=== PATIENT | male | born 1975 | race Caucasian/White ===

== ENCOUNTER → 2020-06-30 12:47 | Outpatient (BNVA) | payer MEDICAID, SELFPAY | PROVIDERS: PCP Internal Medicine; Visit Provider Internal Medicine Cardiovascular Disease | DX: Z95.2 Presence of prosthetic heart valve (principal); Z98.890 Other specified postprocedural states; I35.1 Nonrheumatic aortic (valve) insufficiency; Z86.79 Personal history of other diseases of the circulatory system | CPT/HCPCS: 93005; 99212 ==

== ENCOUNTER 2020-09-19 01:32 | Emergency (ER) | payer MEDICAID, SELFPAY ==
[2020-09-19 01:46] VITALS: BP 123/75; PULSE 61; RESP 20; TEMP 37.2; O2SAT 98; BMI 23.7
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
--- NOTE | 2020-09-19 02:40 | PC.NURSE ---
Wounds cleaned by Dr Swanson. Dermabond applied. Clean, dry dressings applied to both wounds on right brower. Wound care taught to patient.
== END 2020-09-19 02:45 | disposition home or self-care (01) ==
LOC: HO.ED 02:35
PROVIDERS: Emergency Provider Emergency Medicine Emergency Medical Services; PCP Internal Medicine
DX: S81.811A Laceration without foreign body, right lower leg, initial encounter (principal); W18.30XA Fall on same level, unspecified, initial encounter; Y93.89 Activity, other specified; Y92.9 Unspecified place or not applicable; Y99.9 Unspecified external cause status
CPT/HCPCS: 12002; 99283; 99284

== ENCOUNTER → 2020-09-30 09:37 | Outpatient (REF) | payer MEDICAID, SELFPAY ==
--- NOTE | 2020-09-30 09:40 | CA_ITS ---
Transthoracic Echocardiogram Patient (Last, First, Middle): Portillo Cabral, Gender: Male Date of : 1975 Age: 45 Procedure Date: 09/30/2020 Procedure Type: Transthoracic Echocardiogram Location: OP Height: 177.8 cm Weight: 77.11 kg BSA: 1.95 m2 Heart Rate: bpm BP: 104 / 74 mmHg Environmental Engineering Manager: Referring MD: Paolo Whitehead MD Symptoms: I51.7 - Cardiomegaly Study Quality: Fair Conclusions: - The left ventricular systolic function is mildly decreased. The calculated ejection fraction is 42% by biplane method. - There is mild to moderately decreased right ventricular systolic function. - A bioprosthetic mitral valve is present. The prosthetic mitral valve appears to be functioning normally. - The patient is status post tricuspid annular ring insertion. There is trace tricuspid valve regurgitation. Findings Left Ventricle Normal left ventricular cavity size. There is normal left ventricular wall thickness. The left ventricular systolic function is mildly decreased. The visually estimated ejection fraction is between 40-45%. The calculated ejection fraction is 42% by biplane method. Diastolic function is indeterminate on the basis of available data. Right Ventricle Normal right ventricular cavity size. There is mild to moderately decreased right ventricular systolic function. Atria The left atrium is normal in size. The right atrium is normal in size. Aortic Valve There is a normal trileaflet aortic valve. There is no aortic valve stenosis. There is mild aortic valve regurgitation. Mitral Valve A bioprosthetic mitral valve is present. The prosthetic mitral valve appears to be functioning normally. There is no mitral valve regurgitation. Mean gradient across the mitral valve 5 mm Hg at 72/Min. Within acceptable limits. Pulmonic Valve The pulmonic valve was not well visualized. There is trace pulmonic valve regurgitation. Tricuspid Valve The patient is status post tricuspid annular ring insertion. There is trace tricuspid valve regurgitation. Tricuspid regurgitation envelope is inadequate for calculation of right ventricular systolic pressure. Great Vessels The asc aorta is normal in size. Venous The inferior vena cava is normal in size and collapses greater than 50% with inspiration. Pericardium/Pleural There is no evidence of pericardial effusion. Prior Study Comparison Changes noted compared to prior study dated: 08/07/2020. LVEF appears diminished. Measurements 2D Linear Measurements RVIDd: 3.61 RVIDd Index: 1.85 IVSd: 0.98 0.6-0.9/0.6-1.0 cm LVIDd: 5.14 3.9-5.3/4.2-5.9 cm LVIDd Index: 2.64 2.4-3.2/2.2-3.1 cm/m2 LVIDs: 3.80 2.0-3.6 cm LVPWd: 0.96 0.7-1.1 cm Ao Root: 3.00 2.1-3.5 cm LA Diam: 3.90 2.7-3.8/3.0-4.0 cm LAIDs Index: 2.00 1.5-2.3 cm/m2 LV Mass: 228.17 67-162/88-224 g LV Mass Index: 117.01 43-95/49-115 g/m2 LVOT Diam: 2.20 3.0+(-)1.3 cm 2D Systolic Function EF 4C: 42.80 >55% EF 2C: 41.10 >55% EF BiP: 41.60 >55% Mitral Valve MV VTI: 0.52 MV Pk Bennie: 1.49 MV Mn Bennie: 1.09 MV Pk Grad: 9.00 MV Mn Grad: 5.00 MV Pk E: 1.45 MV PK A: 1.35 MV Decel Time: 525.00 E/A: 1.10 E'Lateral: 6.85 E'Medial: 5.22 E/E' Med: 27.80 E/E' Lat: 21.20 PHT: 139.00 MVA PHT: 1.58 MVA Continuity: 1.24 Decel Payne: 2.77 Aortic Valve AoV Pk Bennie: 1.11 AoV Mn Bennie: 0.85 AoV VTI: 0.24 AoV Pk Grad: 5.00 Aov Mn Grad: 3.00 BRAULIO Cont.VTI: 2.77 LVOT LVOT Pk Bennie: 0.93 LVOT Mn Bennie: 0.68 LVOT VTI: 0.17 LVOT Pk Grad: 3.00 LVOT Mn Grad: 2.00 LVOT Diam: 2.20 LVOT Area: 3.80 Diastolic Function MV Pk E: 1.45 MV Pk A: 1.35 E/A: 1.10 E'Medial: 5.22 E/E' Med: 27.80 E' Laterial: 6.85 E/E' Lat: 21.20 Tricuspid Valve RA Press: 3.00 Great Vessels Aorta Ao Root-2D: 3.00 2.0-3.7 cm Ao Asc: 2.70 2.1-3.4 cm Ao Arch: 3.10 Updated in Other Vendor System with Status of Final Fady Villagomez MD electronically signed on 09/30/2020 1:33:02 PM with status of Final
== END ==
LOC: HO.CARD 09:37
PROVIDERS: PCP Internal Medicine; Visit Provider Internal Medicine Cardiovascular Disease
DX: I35.1 Nonrheumatic aortic (valve) insufficiency (principal); I51.7 Cardiomegaly; Z95.2 Presence of prosthetic heart valve
CPT/HCPCS: 93306

== ENCOUNTER → 2020-11-27 14:17 | Outpatient (BNVA) | payer MEDICAID, SELFPAY | PROVIDERS: PCP Internal Medicine; Visit Provider Internal Medicine Cardiovascular Disease | DX: I42.9 Cardiomyopathy, unspecified (principal); Z95.2 Presence of prosthetic heart valve | CPT/HCPCS: 99212 ==

== ENCOUNTER → 2021-06-22 10:16 | Outpatient (REF) | payer MEDICAID, SELFPAY ==
--- NOTE | 2021-06-22 10:19 | CA_ITS ---
Transthoracic Echocardiogram Limited Patient (Last, First, Middle): Portillo Cabral, Gender: Male Date of : 1975 Age: 45 Procedure Date: 06/22/2021 Procedure Type: Transthoracic Echocardiogram Limited Location: OP Height: 177.8 cm Weight: 74.84 kg BSA: 1.92 m2 Heart Rate: bpm BP: 120 / 80 mmHg Sales And Marketing Coordinator: VH/OT Referring MD: Paolo Whitehead MD Symptoms: I42.9 - Cardiomyopathy, unspecified Study Quality: Fair ECG Rhythm: Sinus Conclusions: - The left ventricular systolic function is mildly decreased. The calculated ejection fraction is 43% by biplane method. - Mildly increased right ventricular cavity size. There is mildly decreased right ventricular systolic function. - A bioprosthetic mitral valve is present. The prosthetic mitral valve appears to be functioning normally. - Normally functioning tricuspid annuloplasty ring. Findings Left Ventricle Normal left ventricular cavity size. There is normal left ventricular wall thickness. The left ventricular systolic function is mildly decreased. The calculated ejection fraction is 43% by biplane method. There is mild global hypokinesis. Diastolic function is indeterminate on the basis of available data. Right Ventricle Mildly increased right ventricular cavity size. There is mildly decreased right ventricular systolic function. Mitral Valve A bioprosthetic mitral valve is present. The prosthetic mitral valve appears to be functioning normally. There is no mitral valve regurgitation. Mean gradient across the mitral valve 6 mm Hg at 67/Min. Marginal increase compared to prior study. Tricuspid Valve There is no tricuspid valve regurgitation. Annuloplasty ring noted. Mean gradient across the tricuspid valve 2mmHg at 67/min. No significant regurgitation. Venous The inferior vena cava is normal in size and collapses greater than 50% with inspiration. Prior Study Comparison No significant change compared to prior study dated: 09/30/2020. Measurements 2D Linear Measurements IVSd: 0.90 0.6-0.9/0.6-1.0 cm LVIDd: 5.63 3.9-5.3/4.2-5.9 cm LVIDd Index: 2.93 2.4-3.2/2.2-3.1 cm/m2 LVIDs: 4.41 2.0-3.6 cm LVPWd: 0.90 0.7-1.1 cm LV Mass: 241.16 67-162/88-224 g LV Mass Index: 125.60 43-95/49-115 g/m2 2D Systolic Function EF 4C: 42.60 >55% EF 2C: 40.60 >55% EF BiP: 43.20 >55% Mitral Valve MV VTI: 0.57 MV Pk Bennie: 1.69 MV Mn Bennie: 1.02 MV Pk Grad: 11.00 MV Mn Grad: 5.00 Right Ventricle TAPSE (mm): 16.00 TVS' Bennie: 7.00 Tricuspid Valve TV Pk Bennie: 0.82 TV Mn Bennie: 0.55 TV Pk Grad: 3.00 TV Mn Grad: 1.00 TR Pk Bennie: 1.01 TR Pk Grad: 4.00 Updated in Other Vendor System with Status of Final Fady Villagomez MD electronically signed on 06/22/2021 11:43:25 AM with status of Final
== END ==
LOC: HO.CARD 10:16
PROVIDERS: PCP Internal Medicine; Visit Provider Internal Medicine Cardiovascular Disease
DX: I42.9 Cardiomyopathy, unspecified (principal)
CPT/HCPCS: 93308

== ENCOUNTER → 2021-07-07 12:53 | Outpatient (BNVA) | payer MEDICAID, SELFPAY | PROVIDERS: PCP Internal Medicine; Referring Provider Internal Medicine; Visit Provider Internal Medicine Cardiovascular Disease | DX: I42.9 Cardiomyopathy, unspecified (principal); Z95.2 Presence of prosthetic heart valve | CPT/HCPCS: 93005; 99212 ==

== ENCOUNTER 2021-09-10 15:09 | Outpatient (REF) | payer MEDICAID, SELFPAY ==
[2021-09-10 15:19] LABS: MANUAL DIFF FLAG NO
[2021-09-10 15:36] LABS: Basophils Percent Auto 0.6 % (0-2); Eosinophils Absolute Auto 0.2 X10*3/uL (0.0-0.4); Eosinophils Percent Auto 2.5 % (0-4); Hematocrit 43.7 % (42.0-52.0); Hemoglobin 14.4 g/dl (14.0-18.0); Imm Gran Abs Auto 0.02 X10*3/uL (0.00-0.03); Imm Gran Pct Auto 0.3 % (0.0-0.4); Lymphocytes Absolute Auto 1.5 X10*3/uL (1.2-4.9); Lymphocytes Percent Auto 23.4 % (20-40); Mean Corpuscular Volume 94.2 fL (80.0-98.0); Mean Platelet Volume 10.8 fL (9.4-12.4); Monocytes Absolute Auto 0.5 X10*3/uL (0.1-1.2); Monocytes Percent Auto 7.2 % (2-11); Neutrophils Absolute Auto 4.3 x10*3/uL (2.0-8.3); Platelet Count 104 X10*3/uL (160-400); Red Blood Count 4.64 X10*6/uL (4.60-5.80); Red Cell Distribution Width 11.9 % (11.0-16.0); White Blood Count 6.5 X10*3/uL (4.8-10.8)
[2021-09-10 16:01] LABS: Alanine Aminotransferase 17 U/L (0-40); Albumin Level 4.4 g/dL (3.5-5.0); Alkaline Phosphatase 43 U/L (39-117); Anion Gap 13 (12-20); Aspartate Amino Transferase 22 U/L (5-37); Bilirubin Total 0.4 mg/dL (0.0-1.0); Blood Urea Nitrogen 36 mg/dL (9-16); Calcium 9.2 mg/dL (8.4-10.2); Carbon Dioxide 25 mmol/L (22-29); Chloride 103 mmol/L (96-108); Cholesterol 147 mg/dL; Estimated Glomerular Filt Rate 49; Glucose Random 84 mg/dL (60-115); HDL Cholesterol 46 mg/dL; LDL Cholesterol Calculated 83 mg/dl; Potassium 4.1 mmol/L (3.3-5.1); Sodium 137 mmol/L (135-145); Total Protein 6.9 g/dL (6.5-8.0); Triglycerides 91 mg/dL
[2021-09-11 07:51] LABS: HBS Num1 > 1000.00 mIU/mL (0-7.99); HBc Num1 0.08 S/CO (0.00-0.79); HBsAGNum1 0.22 S/CO (0.00-0.99); Hepatitis A Antibody IgM 0.28 Index (0-0.79); Hepatitis B Core Antibody Nonreactive (Nonreactive); Hepatitis B Surface Antigen Negative (Negative); ~HepC Num1 0.09 S/CO (0.00-0.79); ~Hepatitis A Antibody IgM Nonreactive (Nonreactive); ~Hepatitis B Surface Antibody REACTIVE (Nonreactive); ~Hepatitis C Antibody Nonreactive (Nonreactive)
== END 2021-09-10 15:10 | disposition home or self-care (01) ==
LOC: HO.LAB 15:09
PROVIDERS: PCP Internal Medicine; Visit Provider Internal Medicine
DX: Z00.00 Encounter for general adult medical examination without abnormal findings (principal); Z13.31 Encounter for screening for depression; R74.01 Elevation of levels of liver transaminase levels; Z95.2 Presence of prosthetic heart valve
CPT/HCPCS: 36415; 80053; 80061; 85025; 86704; 86706; 86709; 86803; 87340

== ENCOUNTER 2022-03-18 14:06 | Outpatient (REF) | payer MEDICAID, SELFPAY ==
[2022-03-18 14:15] LABS: MANUAL DIFF FLAG NO
[2022-03-18 14:34] LABS: Basophils Absolute Auto 0.1 X10*3/uL (0.0-0.2); Basophils Percent Auto 0.9 % (0-2); Eosinophils Absolute Auto 0.2 X10*3/uL (0.0-0.4); Eosinophils Percent Auto 1.9 % (0-4); Hematocrit 42.4 % (42.0-52.0); Imm Gran Abs Auto 0.02 X10*3/uL (0.00-0.03); Imm Gran Pct Auto 0.2 % (0.0-0.4); Lymphocytes Absolute Auto 1.1 X10*3/uL (1.2-4.9); Lymphocytes Percent Auto 12.1 % (20-40); Mean Corpuscular Hemoglobin 30.8 pg (27.0-33.0); Mean Corpuscular Volume 93.4 fL (80.0-98.0); Mean Platelet Volume 10.8 fL (9.4-12.4); Monocytes Absolute Auto 0.6 X10*3/uL (0.1-1.2); Monocytes Percent Auto 6.7 % (2-11); Neutrophils Absolute Auto 6.9 x10*3/uL (2.0-8.3); Neutrophils Percent Auto 78.2 % (45-73); Platelet Count 135 X10*3/uL (160-400); Red Blood Count 4.54 X10*6/uL (4.60-5.80); Red Cell Distribution Width 12.1 % (11.0-16.0); White Blood Count 8.8 X10*3/uL (4.8-10.8)
[2022-03-18 15:30] LABS: Alanine Aminotransferase 16 U/L (0-40); Albumin Level 4.6 g/dL (3.5-5.0); Alkaline Phosphatase 47 U/L (39-117); Anion Gap 14 (12-20); Aspartate Amino Transferase 21 U/L (5-37); Bilirubin Total 0.5 mg/dL (0.0-1.0); Blood Urea Nitrogen 27 mg/dL (9-16); Carbon Dioxide 29 mmol/L (22-29); Chloride 102 mmol/L (96-108); Estimated Glomerular Filt Rate > 60; Glucose Random 91 mg/dL (60-115); Potassium 4.6 mmol/L (3.3-5.1); Sodium 140 mmol/L (135-145); Total Protein 7.2 g/dL (6.5-8.0)
[2022-03-18 15:31] LABS: Creatinine Urine 187.15 mg/dL; Protein/Creatinine Ratio, Ur 0.04 (<0.2); Total Protein Urine Random 8 mg/dL (<12)
== END 2022-03-18 14:07 | disposition home or self-care (01) ==
LOC: HO.LAB 14:06
PROVIDERS: PCP Internal Medicine; Visit Provider Internal Medicine
DX: D69.59 Other secondary thrombocytopenia (principal); I42.9 Cardiomyopathy, unspecified; N18.9 Chronic kidney disease, unspecified; Z95.2 Presence of prosthetic heart valve
CPT/HCPCS: 36415; 80053; 84156; 85025

== ENCOUNTER → 2022-06-25 10:03 | Outpatient (REF) | payer MEDICAID, SELFPAY ==
--- NOTE | 2022-06-25 10:08 | CA_ITS ---
Transthoracic Echocardiogram Patient (Last, First, Middle): Portillo Cabral, Gender: Male Date of : 1975 Age: 46 Procedure Date: 06/25/2022 Procedure Type: Transthoracic Echocardiogram Location: OP Height: 177.8 cm Weight: 74.84 kg BSA: 1.92 m2 Heart Rate: bpm BP: 110 / 70 mmHg Folding Machine Tender: TO Referring MD: Paolo Whitehead MD Symptoms: I42.9 - Cardiomyopathy, unspecified Study Quality: Fair ECG Rhythm: Sinus Conclusions: - The left ventricular systolic function is mildly decreased. The calculated ejection fraction is 47% by biplane method. - A bioprosthetic mitral valve is present. The prosthetic mitral valve appears to be functioning normally. - The patient is status post tricuspid annular ring insertion. There is no tricuspid valve regurgitation. - There is mild aortic valve regurgitation. Findings Left Ventricle There is normal left ventricular wall thickness. The left ventricular systolic function is mildly decreased. The calculated ejection fraction is 47% by biplane method. There is mild global hypokinesis. Diastolic function is indeterminate on the basis of available data. Top normal size. LV peak GLS -15%. Right Ventricle Mildly increased right ventricular cavity size. There is mild to moderately decreased right ventricular systolic function. Atria Both atria are normal in size. Aortic Valve There is a normal trileaflet aortic valve. There is no aortic valve stenosis. There is mild aortic valve regurgitation. Mitral Valve A bioprosthetic mitral valve is present. The prosthetic mitral valve appears to be functioning normally. There is no mitral valve regurgitation. Mean gradient across mitral valve 5mmHg at 53/min. Similar to prior study. Pulmonic Valve The pulmonic valve is likely normal. There is trace pulmonic valve regurgitation. Tricuspid Valve The patient is status post tricuspid annular ring insertion. There is no tricuspid valve regurgitation. Mean gradient 2mmHg at 51/min. Great Vessels The asc aorta is normal in size. Venous The inferior vena cava is normal in size and collapses greater than 50% with inspiration. Pericardium/Pleural There is no evidence of pericardial effusion. Prior Study Comparison No significant change compared to prior study dated: 06/22/2021. Measurements 2D Linear Measurements IVSd: 0.85 0.6-0.9/0.6-1.0 cm LVIDd: 5.68 3.9-5.3/4.2-5.9 cm LVIDd Index: 2.96 2.4-3.2/2.2-3.1 cm/m2 LVIDs: 4.21 2.0-3.6 cm LVPWd: 0.80 0.7-1.1 cm LA Diam: 4.30 2.7-3.8/3.0-4.0 cm LAIDs Index: 2.24 1.5-2.3 cm/m2 LV Mass: 219.01 67-162/88-224 g LV Mass Index: 114.07 43-95/49-115 g/m2 LVOT Diam: 2.30 3.0+(-)1.3 cm 2D Systolic Function EF 4C: 48.20 >55% EF 2C: 46.00 >55% EF BiP: 47.10 >55% Mitral Valve MV VTI: 0.61 MV Pk Bennie: 1.77 MV Mn Bennie: 1.03 MV Pk Grad: 13.00 MV Mn Grad: 5.00 MV Pk E: 1.44 MV PK A: 1.03 MV Decel Time: 379.00 E/A: 1.40 E'Lateral: 6.31 E'Medial: 5.98 E/E' Med: 24.10 E/E' Lat: 22.80 PHT: 111.00 MVA PHT: 1.98 MVA Continuity: 1.15 Decel Guadalupe: 3.80 Aortic Valve AoV Pk Bennie: 1.28 AoV Mn Bennie: 0.88 AoV VTI: 0.28 AoV Pk Grad: 7.00 Aov Mn Grad: 3.00 BRAULIO Cont.VTI: 2.51 LVOT LVOT Pk Bennie: 0.83 LVOT Mn Bennie: 0.53 LVOT VTI: 0.17 LVOT Pk Grad: 3.00 LVOT Mn Grad: 1.00 LVOT Diam: 2.30 LVOT Area: 4.15 Diastolic Function MV Pk E: 1.44 MV Pk A: 1.03 E/A: 1.40 E'Medial: 5.98 E/E' Med: 24.10 E' Laterial: 6.31 E/E' Lat: 22.80 Right Ventricle TAPSE (mm): 13.30 TVS' Bennie: 7.07 Tricuspid Valve TV Pk Bennie: 1.35 TV Mn Bennie: 0.65 TV Pk Grad: 7.00 TV Mn Grad: 2.00 RA Press: 3.00 Great Vessels Aorta Sinus of Valsalva: 3.53 2.0-3.5 cm Ao Asc: 3.00 2.1-3.4 cm Updated in Other Vendor System with Status of Final Fady Villagomez MD electronically signed on 06/27/2022 11:15:51 AM with status of Final
== END ==
LOC: HO.CARD 10:03
PROVIDERS: PCP Internal Medicine; Visit Provider Internal Medicine Cardiovascular Disease
DX: I35.1 Nonrheumatic aortic (valve) insufficiency (principal); I42.9 Cardiomyopathy, unspecified; Z95.2 Presence of prosthetic heart valve
CPT/HCPCS: 93306; 93356

== ENCOUNTER → 2022-07-06 12:40 | Outpatient (BNVA) | payer MEDICAID, SELFPAY | PROVIDERS: PCP Internal Medicine; Referring Provider Internal Medicine; Visit Provider Internal Medicine Cardiovascular Disease | DX: I42.9 Cardiomyopathy, unspecified (principal); Z95.2 Presence of prosthetic heart valve | CPT/HCPCS: 93005; 99212 ==

== ENCOUNTER 2023-02-01 17:29 | Emergency (ER) | payer MEDICAID, SELFPAY ==
[2023-02-01 17:54] VITALS: BP 117/69; PULSE 62; RESP 18; TEMP 36.8; O2SAT 96; BMI 23.7
--- NOTE | 2023-02-01 17:54 | ED.GENADULT ---
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 Related Data Home Medications Medication Instructions Recorded Confirmed aspirin 81 mg tablet,delayed 81 mg PO DAILY 06/30/20 07/06/22 release (Adult Low Dose Aspirin) Previous Rx's Medication Instructions Recorded amoxicillin 500 mg tablet 2,000 mg (4 x 500 mg) PO ONCE PRN 06/30/20 SBE prophylaxis #8 tabs lisinopril 5 mg tablet 5 mg PO DAILY #90 tabs 10/25/22 amoxicillin 500 mg capsule 500 mg PO TID #30 caps 02/01/23 Allergies Allergy/AdvReac Type Severity Reaction Status Date / Time doxycycline Allergy Rash Verified 02/01/23 17:54 Review of Systems Review of Systems: Yes all other systems are reviewed and are negative PMFSH Past Medical History Attestation statement: The following information was validated with the patient. Source: old records reviewed Medical History Cardiomyopathy Infective endocarditis Aortic regurgitation Enlarged RV (right ventricle) History of congestive heart failure Surgical History Mitral valve replaced Hx of tricuspid valve repair History of open heart surgery Family History Family History Father No problems noted. Mother No problems noted. Physical Exam ED Appearance: Alert.?Oriented to person, place and time. No acute distress.?Normal affect. Neck: Normal inspection.? Neck supple.?? CVS: Heart sounds normal. Normal heart rate and rhythm.? Pulses normal.?? Respiratory: No respiratory distress.? Lung sounds clear to auscultation bilaterally?? Skin: Skin warm and dry.? Normal skin color.? Right lateral chest wall just inferior to the axilla with 0.5 cm scabbed wound surrounding erythema, no erythema migrans? Extremities: No lower extremity edema.? Neuro: Moves all extremities spontaneously. Sensation intact bilaterally. No focal neuro deficits. Ambulates with normal steady gait. Medical Decision Making Medical Decision Making [facility] Narrative: Patient is a 47-year-old male presented to emergency department for evaluation of a suspected tick bite to the right lateral chest wall as per HPI, appearance is not consistent with erythema migrans, he has a history of allergy to doxycycline, reviewed UpToDate, no data to support the efficacy of short course of another antibiotic, patient insists he has previously received prophylaxis but does not recall the name. Discussed this case with ED Attending, Dr. Sanchez, recommended course of treatment with amoxicillin 500 mg t.i.d. for 10 days. Reviewed worrisome signs and symptoms that would warrant re-evaluation in the emergency department. Advised outpatient follow-up with primary care provider. Differential Diagnosis Differential Diagnoses: The differential diagnosis associated with the presentation includes (Insect bite, cellulitis, abrasion) External Record Review External record reviewed: Prior outpatient labs Prescription Management I considered prescription management with: Antibiotic Discharge Plan Discharge Clinical Impression: Tick bite Instructions: Tick Bite (ED) Additional Instructions: Complete the entire course of antibiotics as prescribed for Lyme disease prophylaxis. Contact your primary care provider to arrange for follow-up. Prescriptions: New amoxicillin 500 mg capsule 500 mg PO TID Qty: 30 0RF No Action lisinopril 5 mg tablet 5 mg PO DAILY Qty: 90 3RF aspirin [Adult Low Dose Aspirin] 81 mg tablet,delayed release (DR/EC) 81 mg PO DAILY amoxicillin 500 mg tablet 2,000 mg PO ONCE PRN (Reason: SBE prophylaxis) Qty: 8 2RF Referrals: Brenda Espitia MD [Primary Care Provider] -
== END 2023-02-01 18:16 | disposition home or self-care (01) ==
PROVIDERS: Emergency Provider Emergency Medicine; PCP Internal Medicine
DX: S40.861A Insect bite (nonvenomous) of right upper arm, initial encounter (principal); W57.XXXA Bitten or stung by nonvenomous insect and other nonvenomous arthropods, initial encounter; Y93.9 Activity, unspecified; Y92.9 Unspecified place or not applicable; Y99.9 Unspecified external cause status
CPT/HCPCS: 99282; 99283

== ENCOUNTER 2023-06-15 14:26 | Emergency (ER) | payer MEDICAID, SELFPAY ==
[2023-06-15 15:17] VITALS: BP 135/89; PULSE 86; RESP 20; TEMP 37.1; O2SAT 98; BMI 24.4
--- NOTE | 2023-06-15 15:37 | ED.WOUNDLAC ---
HPI - Wound/Laceration General Chief Complaint: Wound/Laceration Stated Complaint: Multiple tick bites R leg Time Seen by Provider: 06/15/23 15:29 Source: patient and RN notes reviewed Mode of arrival: ambulatory Limitations: no limitations History of Present Illness HPI narrative: This is a 47-year-old male, with no known medical problems, presenting to the emergency department with complaints of rash. Patient states that he has for ?bite? olson on his right upper leg. He states that he knows this several days ago. He states that he remove multiple ticks off of his dog. He is concerned that these may have been tics. He denies seeing any ticks on him. He denies any fevers, chills, chest pain, shortness of breath, abdominal pain, nausea, vomiting or diarrhea. No other rashes noted. He states that the areas are painful, denies any itchiness. No other complaints or concerns at this time Onset (ago): day(s) Associated symptoms: none Related Data Home Medications Medication Instructions Recorded Confirmed aspirin 81 mg tablet,delayed 81 mg PO DAILY 06/30/20 07/06/22 release (Adult Low Dose Aspirin) Previous Rx's Medication Instructions Recorded amoxicillin 500 mg tablet 2,000 mg (4 x 500 mg) PO ONCE PRN 06/30/20 SBE prophylaxis #8 tabs lisinopril 5 mg tablet 5 mg PO DAILY #90 tabs 10/25/22 amoxicillin 500 mg capsule 500 mg PO TID #30 caps 02/01/23 amoxicillin 500 mg tablet 500 mg PO TID 10 days #30 tabs 06/15/23 Allergies Allergy/AdvReac Type Severity Reaction Status Date / Time doxycycline Allergy Rash Verified 06/15/23 15:21 Review of Systems Review of Systems: Yes all other systems are reviewed and are negative Constitutional: Constitutional: Reports as per HPI [facility] Past Medical History Medical History Cardiomyopathy Infective endocarditis Aortic regurgitation Enlarged RV (right ventricle) History of congestive heart failure Surgical History Mitral valve replaced Hx of tricuspid valve repair History of open heart surgery Family History Family History Father No problems noted. Mother No problems noted. Social History Social History Advance Directives: No Advance Directives Information Provided: No Physical Exam Vital Signs: Vital Signs: Last Vital Signs Temp 98.8 F 06/15/23 15:50 Pulse 86 06/15/23 15:50 Resp 20 06/15/23 15:50 BP 135/89 06/15/23 15:50 Pulse Ox 98 06/15/23 15:50 O2 Del Method Room Air 06/15/23 15:50 BMI result Body Mass Index 24.4 Const: General: cooperative, comfortable and no acute distress Orientation/consciousness: patient oriented x3 Limitations: no limitations HEENT: Head: Yes normal to inspection, Yes normocephalic and Yes atraumatic Ears: hearing grossly normal bilaterally General nose exam: Normal external nose present Face and sinus: Yes normal facial exam Mouth: Normal oral and palatal mucosa present, oropharynx normal and moist mucous membranes Throat: Yes posterior oropharynx normal Eyes: General: appearance normal, both eyes and all related structures Eyelids: Yes eyelids normal Conjunctivae: conjunctivae normal Sclerae: sclerae normal Pupils: Equal, round and reactive pupils present EOM: EOMs intact bilaterally Neck: Neck: Yes normal visual inspection, Yes full ROM and Yes no lymphadenopathy Lymphatic: no lymphadenopathy noted Chest: Chest palpation & inspection: normal inspection of the chest Resp: Effort & Inspection: normal respiratory effort and able to speak in complete sentences Auscultation: clear to auscultation bilaterally, no crackles, no rales, no rhonchi and no wheezes Cardio: Rate: regular rate Rhythm: regular rhythm Heart sounds: S1 normal heart sound present and S2 normal heart sound present GI: Inspection: Yes normal to inspection Skin: Other: multiple indurated lesions noted to right upper thigh, no surrounding erythema or warmth. No drainage. General skin exam: no rashes or lesions noted Trauma: no lacerations or abrasions Wounds: no wounds Neuro: General: patient oriented x3 and moves all extremities Cranial nerves: Yes Equal, round and reactive pupils present Extrem: General: Yes normal to inspection Right upper extremity: normal to inspection Left upper extremity: normal to inspection Right lower extremity: normal to inspection Left lower extremity: normal to inspection Medical Decision Making Medical Decision Making MDM Narrative: This is a [id number]-knh-male presenting to the ER with complaints of R thigh lesions x 4 days. Concern for tick bites. On arrival, pt well appearing, under no acute distress. Physcial examination concerning for insect bites vs tick bites. Less likely cellulitis, contact dermatitis, necrosis. He is feeling well, no other symptoms. No evidence of infection. Will draw for tick borne illnesses. Pt has allergy to doxycycline, will treat with amoxicillin. Given strict return precautions. He understands and agrees with plan. Stable for d/c. Differential Diagnosis Differential Diagnoses: The differential diagnosis associated with the presentation includes see above Admission/Observation Consideration of admission/observation: Escalation of care including admission/observation considered Discharge Plan Discharge Clinical Impression: Leg wound, right, Tick bite Patient Disposition: Home, Self-Care Instructions: Tick Bite (ED) Additional Instructions: Please keep wounds clean and dry. We gertrudis blood on you to test you for tick-borne illnesses. Will call with any abnormal results. Please take prescribed antibiotic as directed. I am also giving your referral to Infectious Disease, they can follow up with you if any of your lab work becomes positive. If any new or worsening symptoms occur including not limited to worsening redness, swelling, rash, difficulty breathing, chest pain, or shortness of breath. Prescriptions: New amoxicillin 500 mg tablet 500 mg PO TID 10 Days Qty: 30 0RF No Action lisinopril 5 mg tablet 5 mg PO DAILY Qty: 90 3RF amoxicillin 500 mg capsule 500 mg PO TID Qty: 30 0RF aspirin [Adult Low Dose Aspirin] 81 mg tablet,delayed release (DR/EC) 81 mg PO DAILY amoxicillin 500 mg tablet 2,000 mg PO ONCE PRN (Reason: SBE prophylaxis) Qty: 8 2RF Referrals: [facility] Infectious Disease [Provider Group] Interventions: ED Discharge Assessment Last Done: 06/15/23 15:50 Discharge Date/Time: 06/15/23 15:51
[2023-06-15 15:50] VITALS: BP 135/89; PULSE 86; RESP 20; TEMP 37.1; O2SAT 98
[2023-06-17 13:03] LABS: Lyme Abs Screen <0.90 index
[2023-06-22 14:04] LABS: A. Phagocytophilum Ab IgG <1:64 (<1:64); A. Phagocytophilum Ab IgM <1:20 (<1:20); E. Chaffeensis Ab IgG <1:64 (<1:64); E. Chaffeensis Ab IgM <1:20 (<1:20)
[2023-06-23 09:18] LABS: Babesia IgG <1:64 titer (<1:64); Babesia IgM <1:20 titer (<1:20)
== END 2023-06-15 15:51 | disposition home or self-care (01) ==
PROVIDERS: Physician Assistant Medical; Emergency Provider Emergency Medicine; PCP Internal Medicine
DX: S70.361A Insect bite (nonvenomous), right thigh, initial encounter (principal); W57.XXXA Bitten or stung by nonvenomous insect and other nonvenomous arthropods, initial encounter; Y93.9 Activity, unspecified; Y92.9 Unspecified place or not applicable; Y99.9 Unspecified external cause status
CPT/HCPCS: 36415; 86617; 86618; 86666; 86753; 99282; 99283

== ENCOUNTER → 2023-06-22 14:53 | Outpatient (REF) | payer MEDICAID, SELFPAY ==
--- NOTE | 2023-06-22 14:55 | CA_ITS ---
Transthoracic Echocardiogram Patient (Last, First, Middle): Portillo Cabral, Gender: Male Date of : 1975 Age: 47 Procedure Date: 06/22/2023 Procedure Type: Transthoracic Echocardiogram Location: OP Height: 177.8 cm Weight: 77.11 kg BSA: 1.95 m2 Heart Rate: bpm BP: 106 / 68 mmHg Party Coordinator: TO Referring MD: Paolo Whitehead MD Incident Response Analyst: Paolo Whitehead MD Symptoms: I42.9 - Cardiomyopathy, unspecified Study Quality: Adequate ECG Rhythm: Sinus Conclusions: - 1. Low normal LV ejection fraction 50-55% with normal filling pattern 2. Mildly dilated right ventricle with moderately reduced RV systolic function by TAPSE 3. Normally function bioprosthetic mitral valve 4. Good tricuspid valve repair 5. No gross pericardial effusion 6. Mild aortic regurgitation Findings Left Ventricle Normal left ventricular cavity size. There is normal left ventricular wall thickness. The left ventricular systolic function is low normal. The visually estimated ejection fraction is between 50-55%. Spectral Doppler is indicative of a normal filling pattern. Right Ventricle Mildly increased right ventricular cavity size. There is moderately decreased right ventricular systolic function. Atria The left atrium is normal in size. There is no evidence of interatrial shunt. The right atrium is normal in size. Aortic Valve Normal aortic valve structure and function. There is no aortic valve stenosis. There is mild aortic valve regurgitation. Mitral Valve A bioprosthetic mitral valve is present. The prosthetic mitral valve appears to be functioning normally. Mean gradient across the valve is at about 5-6 mmHg with calculated effective orifice area of about 2.1 centimeters sq. No significant mitral regurgitation noted. The valve is well-seated without any abnormal rocking motion Pulmonic Valve The pulmonic valve is likely normal. There is trace pulmonic valve regurgitation. Tricuspid Valve There is trace tricuspid valve regurgitation. Tricuspid regurgitation envelope is inadequate for calculation of right ventricular systolic pressure. tricuspid annuloplasty ring in place. Great Vessels All visible segments of the aorta are normal in size. The pulmonary artery was not well visualized. Venous The inferior vena cava is normal in size and collapses greater than 50% with inspiration. Pericardium/Pleural There is no evidence of pericardial effusion. Prior Study Comparison No significant change compared to prior study dated: 06/25/2022. Measurements 2D Linear Measurements IVSd: 1.05 0.6-0.9/0.6-1.0 cm LVIDd: 5.42 3.9-5.3/4.2-5.9 cm LVIDd Index: 2.78 2.4-3.2/2.2-3.1 cm/m2 LVIDs: 3.82 2.0-3.6 cm LVPWd: 1.02 0.7-1.1 cm LA Diam: 3.80 2.7-3.8/3.0-4.0 cm LAIDs Index: 1.95 1.5-2.3 cm/m2 LV Mass: 271.41 67-162/88-224 g LV Mass Index: 139.18 43-95/49-115 g/m2 LVOT Diam: 2.40 3.0+(-)1.3 cm 2D Systolic Function EF 4C: 54.60 >55% EF 2C: 50.70 >55% EF BiP: 52.90 >55% Mitral Valve MV VTI: 0.62 MV Pk Bennie: 1.86 MV Mn Bennie: 1.28 MV Pk Grad: 14.00 MV Mn Grad: 8.00 MV Pk E: 1.55 MV PK A: 1.52 MV Decel Time: 354.00 E/A: 1.00 E'Lateral: 6.20 E'Medial: 5.11 E/E' Med: 30.30 E/E' Lat: 25.00 PHT: 104.00 MVA PHT: 2.12 MVA Continuity: 1.34 Decel Ray: 4.39 Aortic Valve AoV Pk Bennie: 1.25 AoV Mn Bennie: 0.89 AoV VTI: 0.26 AoV Pk Grad: 6.00 Aov Mn Grad: 3.00 BRAULIO Cont.VTI: 3.16 AI Pk Bennie: 4.22 AI Ray: 1.56 LVOT LVOT Pk Bennie: 0.90 LVOT Mn Bennie: 0.58 LVOT VTI: 0.18 LVOT Pk Grad: 3.00 LVOT Mn Grad: 2.00 LVOT Diam: 2.40 LVOT Area: 4.52 Diastolic Function MV Pk E: 1.55 MV Pk A: 1.52 E/A: 1.00 E'Medial: 5.11 E/E' Med: 30.30 E' Laterial: 6.20 E/E' Lat: 25.00 Right Ventricle TAPSE (mm): 13.10 TVS' Bennie: 10.40 Tricuspid Valve TV Pk Bennie: 0.93 TV Mn Bennie: 0.60 TV Pk Grad: 3.00 TV Mn Grad: 2.00 RA Press: 3.00 Great Vessels Aorta Sinus of Valsalva: 3.63 2.0-3.5 cm Ao Asc: 2.80 2.1-3.4 cm Updated in Other Vendor System with Status of Final Paolo Whitehead MD electronically signed on 06/23/2023 11:15:16 AM with status of Final
== END ==
LOC: HO.CARD 14:53
PROVIDERS: PCP Internal Medicine; Visit Provider Internal Medicine Cardiovascular Disease
DX: I42.9 Cardiomyopathy, unspecified (principal)
CPT/HCPCS: 93306

== ENCOUNTER → 2023-06-22 14:55 | Outpatient (BNV) | payer MEDICAID, SELFPAY | PROVIDERS: PCP Internal Medicine; Visit Provider Internal Medicine Cardiovascular Disease | DX: I42.9 Cardiomyopathy, unspecified (principal); I35.1 Nonrheumatic aortic (valve) insufficiency; Z95.3 Presence of xenogenic heart valve | CPT/HCPCS: 93306 ==

== ENCOUNTER 2023-06-29 11:28 | Outpatient (AMB) | payer MEDICAID, SELFPAY ==
[2023-06-29 11:32] VITALS: PULSE 74; TEMP 36.6; O2SAT 96; BMI 25.7
--- NOTE | 2023-06-29 11:32 | MHC.OFFVIS ---
Intake Vital Signs 06/29/23 11:32 Height 5 ft 10 in Weight 179 lb BMI 25.7 Pulse 74 Pulse Source Pulse Oximeter Temp 97.8 F Temp Source Oral Pulse Oximetry (%) 96 Intake Visit Reasons: [facility] list/Tick Bites ER follow up Allergies doxycycline Allergy (Verified 06/29/23 11:33) Rash HPI [facility] list/Tick Bites ER follow up HPI Details He has had multiple areas of tick bites over legs. He has no fever or chills. He has no diarrhea or rash. [facility] Medical History Cardiomyopathy Infective endocarditis Aortic regurgitation Enlarged RV (right ventricle) History of congestive heart failure Surgical History Mitral valve replaced Hx of tricuspid valve repair History of open heart surgery Family History Father No problems noted. Mother No problems noted. Review of Systems Const All systems reviewed & are unremarkable except as noted in HPI and below Physical Exam Vital Signs: Last Vital Signs Temp 97.8 F 06/29/23 11:32 Pulse 74 06/29/23 11:32 Pulse Ox 96 06/29/23 11:32 BMI result Body Mass Index 25.7 Const General: cooperative Orientation/consciousness: patient oriented x3 HEENT Head: Yes normal to inspection Mouth: Normal oral and palatal mucosa present Eyes General: appearance normal, both eyes and all related structures Pupils: Equal, round and reactive pupils present Resp Effort & Inspection: normal respiratory effort Cardio Rate: regular rate Rhythm: regular rhythm GI Palpation (GI): Soft to palpation and nontender General: Yes no CVA tenderness Back/Spine/Pelvis Back: no CVA tenderness Skin Other: areas excoriation lower legs General skin exam: no rashes or lesions noted Neuro General: patient oriented x3 Cranial nerves: Yes CN's II-XII intact bilaterally and Yes Equal, round and reactive pupils present Extrem General: Yes normal to inspection Psych Appearance: grossly normal Assessment & Plan Assessment & Plan (1) Leg wound, right: Code(s): S81.801A - Unspecified open wound, right lower leg, initial encounter (2) Aortic regurgitation: Code(s): I35.1 - Nonrheumatic aortic (valve) insufficiency (3) Mitral valve replaced: Comment: October 2015 complex mitral valve reconstruction surgery Janis TownsendNicolassimba Mendiola ring for 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 Subsequently in 2017 and recurrent endocarditis and was managed with IV antibiotics. Had continued IV drug abuse and other episode of endocarditis that led to progressive mitral regurgitation and subsequently progressive right sided dysfunction severe tricuspid regurgitation. He was admitted to [facility] and subsequently diuresed and transferred to [facility]. There he underwent repeat open-heart surgery in wall in this time mitral valve replacement with a bioprosthetic valve and tricuspid valve repair. Subsequently developed right heart failure immediately after surgery in June 2018 and subsequently diuresed and since then has remained of drugs and his right heart failure syndrome has normalized. Code(s): Z95.2 - Presence of prosthetic heart valve Plan: No evidence of infection seen at this time Return to hospital if fever or chills or other concerning symptoms Plan na Coding Level of Care Code New Pt Level 3 (51364) Diagnoses Leg wound, right S81.801A Aortic regurgitation I35.1 Mitral valve replaced Z95.2
== END 2023-06-29 11:50 | disposition home or self-care (01) ==
LOC: HO.HID 11:28
PROVIDERS: PCP Internal Medicine; Referring Provider Internal Medicine; Visit Provider Internal Medicine
DX: S81.801A Unspecified open wound, right lower leg, initial encounter (principal); I35.1 Nonrheumatic aortic (valve) insufficiency; Z95.2 Presence of prosthetic heart valve
CPT/HCPCS: 99203

== ENCOUNTER → 2023-06-29 11:28 | Outpatient (BNVA) | payer MEDICAID, SELFPAY | PROVIDERS: PCP Internal Medicine; Visit Provider Internal Medicine | DX: I35.1 Nonrheumatic aortic (valve) insufficiency (principal); W57.XXXA Bitten or stung by nonvenomous insect and other nonvenomous arthropods, initial encounter; Z95.2 Presence of prosthetic heart valve | CPT/HCPCS: 99202 ==

== ENCOUNTER 2023-07-07 13:45 | Outpatient (AMB) | payer MEDICAID, SELFPAY ==
[2023-07-07 13:49] VITALS: BP 116/70; PULSE 69; BMI 24.7
--- NOTE | 2023-07-07 13:49 | MHC.OFFVIS ---
Intake Vital Signs 07/07/23 13:49 Height 5 ft 10 in Weight 171 lb 15.369 oz BMI 24.7 BP 116/70 Blood Pressure Location Lt brachial Position Sitting Pulse 69 Intake Visit Reasons: 1 year followup w/ekg dx: cardiomyopathy Intake Note: 1 year follow-up dx cmp with ekg feeling good Chief Service Dispatcher Required: No Allergies doxycycline Allergy (Verified 06/29/23 11:33) Rash Medication List - Last Reconciled 07/07/23 by Paolo Whitehead MD aspirin (Adult Low Dose Aspirin) 81 mg PO DAILY lisinopril 5 mg PO DAILY HPI HPI Comments History of Present Illness Details Portillo comes for follow-up. He has been doing very well with exercise capacity. Continues to exercise at high level without any symptoms. No symptoms of exertional shortness of breath or fatigue. Echocardiogram shows stable low normal LV ejection fraction 50-55% reduced RV systolic function with good function of the bioprosthetic mitral valve as well as good tricuspid valve repair with mild aortic regurgitation. Nothing has changed he is taking all his medications regularly. Denies any prolonged palpitation irregular heartbeat. Denies any heart failure symptoms. Denies any light-headedness, syncope. [facility] Medical History Cardiomyopathy Infective endocarditis Aortic regurgitation Enlarged RV (right ventricle) History of congestive heart failure Surgical History Mitral valve replaced Hx of tricuspid valve repair History of open heart surgery Family History Father No problems noted. Mother No problems noted. Review of Systems Const Denies chills, Denies fatigue, Denies fever(s), Denies frequent falls, Denies weakness, Denies weight gain and Denies weight loss ENT Denies dizziness Card Denies chest pain, Denies leg edema, Denies lightheadedness, Denies palpitations, Denies dyspnea, Denies dyspnea on exertion, Denies orthopnea and Denies other (loss of consciousness) Resp Denies cough, Denies dyspnea and Denies dyspnea on exertion GI Denies hematochezia and Denies change in stool character Musc Denies abnormal gait, Denies muscle weakness, Denies numbness, Denies radiating pain into limb and Denies tingling Neuro Denies abnormal gait, Denies dizziness, Denies frequent falls, Denies numbness, Denies tingling and Denies weakness Endo Denies fatigue and Denies palpitations Physical Exam Vital Signs: Last Vital Signs Pulse 69 07/07/23 13:49 BP 116/70 07/07/23 13:49 BMI result Body Mass Index 24.7 Const General: cooperative, comfortable, no acute distress, well developed, alert and awake Nutritional Appearance: average body habitus Orientation/consciousness: patient oriented x3 Limitations: no limitations Neck Neck: Yes trachea midline, Yes supple and Yes no JVD Chest Chest palpation & inspection: normal inspection of the chest and other (Well-healed sternotomy scar) Resp Effort & Inspection: normal respiratory effort Auscultation: clear to auscultation bilaterally Cardio Jugular venous distension: no JVD Palpation: normal PMI Rate: regular rate Rhythm: regular rhythm Heart sounds: S1 normal heart sound present and S2 normal heart sound present GI Auscultation: normal bowel sounds Skin General skin exam: no rashes or lesions noted Neuro General: patient oriented x3 and no focal motor deficits Extrem General: Yes no clubbing, cyanosis or edema Psych Appearance: grossly normal Office Procedures EKG Details: EKG shows normal sinus rhythm with sinus arrhythmia [id number], Complete Assessment & Plan Assessment & Plan (1) Cardiomyopathy: Comment: LV ejection fraction of 42% by echocardiogram, September 2020 Code(s): I42.9 - Cardiomyopathy, unspecified Plan: Low normal LV ejection fraction 50-55% which has remained stable. Also RV systolic dysfunction. Continue lisinopril therapy. Avoidance of cardiotoxic agents were discussed. He understands and agrees. Advised to call me with any worsening symptoms. Follow-up echocardiogram in 1 year's time. (2) Enlarged RV (right ventricle): Code(s): I51.7 - Cardiomegaly Plan: RV systolic dysfunction from prior significant tricuspid regurgitation and probably open-heart surgery. Currently stable without any limitations. Discussed with him about limited options for treatment for the same. Continue lisinopril therapy as above. Continue maintain activity level as tolerated. 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 Subsequently in 2017 and recurrent endocarditis and was managed with IV antibiotics. Had continued IV drug abuse and other episode of endocarditis that led to progressive mitral regurgitation and subsequently progressive right sided dysfunction severe tricuspid regurgitation. He was admitted to [facility] and subsequently diuresed and transferred to [facility]. There he underwent repeat open-heart surgery in wall in this time mitral valve replacement with a bioprosthetic valve and tricuspid valve repair. Subsequently developed right heart failure immediately after surgery in June 2018 and subsequently diuresed and since then has remained of drugs and his right heart failure syndrome has normalized. Code(s): Z95.2 - Presence of prosthetic heart valve Plan: Bioprosthetic mitral valve replacement which is working well. Will secondary to mitral valve endocarditis. Subsequent repair and replacement as well as repair of tricuspid valve all of which look good. He has mild aortic regurgitation which is stable. Continue aspirin therapy. Continue aggressive risk factor modification avoidance of drug use which she is doing. He is significantly turned around his lifestyle. SBE prophylaxis as per ACC/[facility] guidelines. Will follow up in the clinic in 1 year's time after an echocardiogram. Thank you for allowing me to partake in his care Orders: Orders CA echo transthoracic complete 1 Year Z95.2 - Presence of prosthetic heart valve Coding Level of Care Code Est Pt Level 4 (45561) Diagnoses Cardiomyopathy I42.9 Enlarged RV (right ventricle) I51.7 Mitral valve replaced Z95.2 CPT Codes EKG - CPT: 74928-[id number], Complete ([id number])
== END 2023-07-07 14:09 | disposition home or self-care (01) ==
PROVIDERS: PCP Internal Medicine; Referring Provider Internal Medicine; Visit Provider Internal Medicine Cardiovascular Disease
DX: I42.9 Cardiomyopathy, unspecified (principal); I51.7 Cardiomegaly; Z95.2 Presence of prosthetic heart valve
CPT/HCPCS: 93010; 99214

== ENCOUNTER → 2023-07-07 13:45 | Outpatient (BNVA) | payer MEDICAID, SELFPAY | PROVIDERS: PCP Internal Medicine; Visit Provider Internal Medicine Cardiovascular Disease | DX: I42.9 Cardiomyopathy, unspecified (principal); I51.7 Cardiomegaly; Z95.2 Presence of prosthetic heart valve | CPT/HCPCS: 93005; 99212 ==

== ENCOUNTER → 2024-07-05 14:43 | Outpatient (REF) | payer MEDICAID, SELFPAY ==
--- NOTE | 2024-07-05 14:46 | CA_ITS ---
Transthoracic Echocardiogram Patient (Last, First, Middle): Portillo Cabral, Gender: Male Date of : 1975 Age: 48 Procedure Date: 07/05/2024 Procedure Type: Transthoracic Echocardiogram Location: OP Height: 177.8 cm Weight: 79.38 kg BSA: 1.97 m2 Heart Rate: bpm BP: 110 / 70 mmHg Tube Coverer: TO Referring MD: Paolo Whitehead MD Vat Tender: Paolo Whitehead MD Symptoms: Z95.2 - Presence of prosthetic heart valve Study Quality: Adequate ECG Rhythm: Sinus Conclusions: - 1. Low normal LV ejection fraction of 50-55% 2. Moderately reduced RV systolic function by TAPSE 3. By atrial enlargement, mild 4. Normally function bioprosthetic mitral valve 5. Good tricuspid valve repair 6. No gross pericardial effusion Findings Left Ventricle Mildly increased left ventricular cavity size. There is normal left ventricular wall thickness. The left ventricular systolic function is low normal. The visually estimated ejection fraction is between 50-55%. Spectral Doppler is indicative of an impaired relaxation filling pattern. Peak GLS is -15.7%, mildly to moderately reduced. Right Ventricle Normal right ventricular cavity size. There is moderately decreased right ventricular systolic function. Atria The left atrium is mildly dilated. There is no evidence of interatrial shunt. The right atrium is mildly dilated. Aortic Valve Normal aortic valve structure and function. There is no aortic valve stenosis. There is mild aortic valve regurgitation. Mitral Valve A bioprosthetic mitral valve is present. The prosthetic mitral valve appears to be functioning normally. the valve is well seated without abnormal rocking motion. There was no periprosthetic regurgitation noted. Mean gradient across mitral valve is about 5 mm Hg which is mildly elevated Pulmonic Valve The pulmonic valve is likely normal. Tricuspid Valve Normal tricuspid valve structure. There is trace tricuspid valve regurgitation. tricuspid ring in place Great Vessels All visible segments of the aorta are normal in size. The pulmonary artery was not well visualized. Venous The inferior vena cava is normal in size and collapses greater than 50% with inspiration. Pericardium/Pleural There is no evidence of pericardial effusion. Prior Study Comparison No significant change compared to prior study dated: 06/22/2023. Measurements 2D Linear Measurements IVSd: 0.85 0.6-0.9/0.6-1.0 cm LVIDd: 5.63 3.9-5.3/4.2-5.9 cm LVIDd Index: 2.86 2.4-3.2/2.2-3.1 cm/m2 LVIDs: 3.97 2.0-3.6 cm LVPWd: 0.84 0.7-1.1 cm LA Diam: 3.90 2.7-3.8/3.0-4.0 cm LAIDs Index: 1.98 1.5-2.3 cm/m2 LV Mass: 222.15 67-162/88-224 g LV Mass Index: 112.77 43-95/49-115 g/m2 LVOT Diam: 2.30 3.0+(-)1.3 cm 2D Systolic Function EF 4C: 44.60 >55% EF 2C: 54.90 >55% EF BiP: 50.10 >55% Mitral Valve MV VTI: 0.59 MV Pk Bennie: 1.76 MV Mn Bennie: 1.24 MV Pk Grad: 12.00 MV Mn Grad: 7.00 MV Pk E: 1.45 MV PK A: 1.32 MV Decel Time: 371.00 E/A: 1.10 E'Lateral: 6.64 E'Medial: 5.11 E/E' Med: 28.40 E/E' Lat: 21.80 PHT: 109.00 MVA PHT: 2.02 MVA Continuity: 0.97 Decel [place]: 3.90 Aortic Valve AoV Pk Bennie: 1.15 AoV Mn Bennie: 0.79 AoV VTI: 0.23 AoV Pk Grad: 5.00 Aov Mn Grad: 3.00 BRAULIO Cont.VTI: 2.54 LVOT LVOT Pk Bennie: 0.77 LVOT Mn Bennie: 0.43 LVOT VTI: 0.14 LVOT Pk Grad: 2.00 LVOT Mn Grad: 1.00 LVOT Diam: 2.30 LVOT Area: 4.15 Diastolic Function MV Pk E: 1.45 MV Pk A: 1.32 E/A: 1.10 E'Medial: 5.11 E/E' Med: 28.40 E' Laterial: 6.64 E/E' Lat: 21.80 Right Ventricle TAPSE (mm): 13.70 TVS' Bennie: 9.57 Tricuspid Valve TV Pk Bennie: 0.93 TV Mn Bennie: 0.51 TV Pk Grad: 3.00 TV Mn Grad: 1.00 RA Press: 3.00 Great Vessels Aorta Sinus of Valsalva: 3.54 2.0-3.5 cm Ao Asc: 2.90 2.1-3.4 cm Ao Arch: 3.00 Updated in Other Vendor System with Status of Final Paolo Whitehead MD electronically signed on 07/05/2024 5:05:47 PM with status of Final
--- OUTSIDE RECORDS SUMMARY | 2024-07-05 17:22 | XMS_ITS | Data Portability ---
Author Organization [facility], Main Office Address [address], [address] [place] [address] Care Team Providers Care Clinical Tech Name Role Phone [facility] OTHER Assessment Encounter Date Assessment Date Assessment LastModified by Organization Details LastModified Time 07/15/2018 07/15/201815: wbc 10.67, hgb 9.6, hct 31.4, na 131, k 4.2, bun 30, creat 1.00 - Will agree to send patient home tomorrow as he appears to be doing ok. He is slightly unsteady on his feet but he feels he will get PT at home from [facility]. Patients family is adamant that he will go home tomorrow and that between family and [facility] he will get all the care he needs. Concern for unsteady gait and monitoring healing of incisions on abd as they appear red today, pt assures me that he has medical donation professional in his family close by that will be seeing him daily. Vitals are stable, no fever. -[facility] called today, got a list of paperwork they need to open case and left for nurse on duty. Wrote referral for [facility] services glord Not available 07/15/2018 12:02:23 Plan of Treatment Reminders Order Date Submit Date Provider Last Modified By Organization Details Last Modified Time Details Appointments None record ed. Lab None record ed. Referral None record ed. Procedures None record ed. Surgeries None record ed. Imaging None record ed. Medication Orders None record ed. Patient TargetsNo targets recorded. Patient InstructionsNo instructions recorded. Reason for Referral None Reported. Problems Name Problem SNOMED Code Status Onset Date Resolution Date Notes Provider Name and Address Organization Details Recorded Time Endocarditi s 97635286 Active 2018 RENATE LORD [address] [facility], [address], [place], [address], [place] [facility] [facility] [employer] 9 10:40:20 Acute right-sided heart failure 396052771 Active [address], [address], [place], [address], [facility] [facility] [employer] 9 10:40:35 Atrial flutter 8204405 Active [address], [address], [place], [address], [facility] 9 10:40:43 Acute nontraumati c kidney injury 2073778562106 03 Active [address], [address], [place], [address], [facility] [facility] 9 10:40:50 Thrombocyto sis 1905765 Active [address], [address], [place], [address], [facility] 9 10:40:58 Substance abuse 17137712 Active [address], [address], [place], [address], [facility] [facility] [employer] 9 10:41:08 Disease of liver 098064179 Active [address], [address], [place], [address], [facility] 9 11:22:50 Constipatio n 11629875 Active [address], [address], [place], [address], [facility] [facility] [employer] 9 11:25:26 Problem Notes None recorded. Medical Equipment None Reported. Allergies No known drug allergies Vitals Date Recorded Heart rate Body temperature Respiratory rate Oxygen saturation Oxygen saturation in Arterial blood by Pulse oximetry Systolic blood pressure Diastolic blood pressure Provider Name and Address Organization Details Last Updated DateTime 9 82 /min 98 [degF] 16 /min 95 % 95 % 102 mm[Hg] 56 mm[Hg] [address], [address], [place], [address], [facility] 9 10:39:27 Social History Question Answer Notes LastModified by Organizat ion Details LastModified Time Tobacco Smoking Status Current Every Day Smoker Not Available [employer] 01/22/2020 03:13:21 Do You Have An Advance Directive? Yes Full Code [id number] Information not available 01/22/2020 What Was The Date Of Your Most Recent Tobacco Screening? 07/15/2018 [id number] Information not available 01/22/2020 Sex: Unknown Functional Status None recorded. Mental Status None recorded. Family History Relationship Description Onset Age of this Age Resolved Age Notes LastModified by Organization Details LastModified Time Father No current problems or disability glord Not available 07/15 11:36:10 Mother No current problems or disability glord Not available 07/15 11:36:10 Medical History No medical history recorded. Past Encounters Encounter ID Performer Location Encounter Start Date Encounter Closed Date Diagnosis/Indication Diagnosis SNOMED-CT Code Diagnosis ICD10 Code Diagnosis Note [id number] [facility] on [address] [place] [address] 07/15/2018 10:37:22 07/25/2018 09:27:13 Acute right-sided heart failure 416370615 I50.811 See HPIS/P redo sternotomy , MVR, TV repair, PFO closure, LAAA on 07/13tyleno l 650 mg as neededibup rofen 600 mg q 8 PRNmidodri ne 10 mg q 8 hours Endocarditis 21903263 I3 3.0 per ID, MSSAamoxic illin 500 mg BID lifelong Thrombocytosis 0313806 D 47.3 hx ofhad 3 units PRBCs in OR, 3 FFP and 1 pltASA 325 mg dailymonit or CBC weeklymult ivit daily Acute nont raumatic kidney injury 5555755947 28129 N17.8 Creat of 1.5 inpatientb umex 3 mg BIDpot chloride 20 meq BIDmonitor daily weights and edemamonit or labs, renal function, lytes Substance abuse 63094577 F19.10 continue vit C/ thiaminesu boxone 8 mg BID , follow up with clinic outptencou rage abstinence seroquel 25 mg qhs(cocain e, heroin, ETOH, tobacco) Constipation 57901193 K5 9.09 Lactulose 30 ml PRNmiralax 17 gm daily Health Concerns Section Related Observation LastModified by Organization Detai ls LastModified Time None Recorded Concern Status LastModified by Organization Details LastModified Time None Recorded Advance Directives Directive Y: Full code Payers Encounter Date Sequence Insurance Name Policy Number Policy Winkler Covered Member ID Winkler Member ID Guarantor Name 07/15/2018 1 [place] [facility] Portillo Cabral [id number] Portillo Cabral Notes Date Note Type Note Provider Name and Address Organization Details Recorded Time 07/15/2018 text/html This is a 42 yea r old male seen today for initial intake visit. Patient presented to the ED with severe volume overload, at that time he was transferred to [facility]. He has a hx of IVDU and used heroin 4 days prior to admission, addiction service was consulted and he was maintained on suboxone 8 mg daily. Once admitted he had some vomiting with bloody emesis and abd distention. KUB revealed gas filled stomach, NG tube placed. US showed moderate ascites, right pleural effusion and collapsed gallbladder with mural edema, secondary fluid status or hepatic inflammation without evidence of cholecystitis. Paracentesis performed and drained 150 cc of bilious and bloody drainage. JAVIER showed EF of 66%, dilated RV with impaired right systolic ventricular function, right and left atrial dilation, partial dehiscence of MV ring, severe MR and TR with no evidence of regurgitation. Underwent cath, had elevated right sided pressures. He was placed on amiodarone for a flutter and dig which was stopped later. He had pigtail placed for pleural effusions and atelectasis, diuresed well. His ongoing thrombocytopenia was thought to be multifactorial in setting of liver dysfunction, infection, abx and meds. He was transfused with 2 units of plt and given a single dose of Nplate. He was started on cefepime for klebsiella positive sputum cultures which was later d/c and he continued his home amoxicillin dose. Once he stabilized he underwent cardiac cath then underwent a redo sternotomy, MVR, TVR, PFO closure and left atrial appendage ligation. He had some post op rhythm issues and was given steroids and pacing. He eventually weaned from sedation, extubated and transferred to step down unit. Suboxone restarted, had issues with constipation that resolved and continued diuresing. Once he was able to work with therapy he was discharged to short term rehab.Patients meds were verified yesterday with this provider mixer diamond powder, for some reason the meds were never sent to the pharmacy and they did not come in until this morning. Patients mother is very upset and would like him discharged today or tomorrow with all of his meds and a referral to homecare. She does not feel he is getting the care he needs here and can get it at home with [facility]. PMH significant for IVDU, MV endocarditis s.p annuloplasty and reconstruction in 2016, HF with severe MR/TR, RV dilation. RENATE GOMEZ [address] [place] [address], [address], [place], [address], [facility] 07/15/2018 12:02:51
== END ==
LOC: HO.CARD 14:43
PROVIDERS: PCP Internal Medicine; Visit Provider Internal Medicine Cardiovascular Disease
DX: Z95.2 Presence of prosthetic heart valve (principal)
CPT/HCPCS: 93306

== ENCOUNTER → 2024-07-05 14:46 | Outpatient (BNV) | payer MEDICAID, SELFPAY | PROVIDERS: PCP Internal Medicine; Visit Provider Internal Medicine Cardiovascular Disease | DX: Z95.3 Presence of xenogenic heart valve (principal); R93.1 Abnormal findings on diagnostic imaging of heart and coronary circulation | CPT/HCPCS: 93306; 93356 ==

== ENCOUNTER 2024-07-25 08:46 | Outpatient (REF) | payer MEDICAID, SELFPAY ==
--- OUTSIDE RECORDS SUMMARY | 2024-07-25 09:07 | XMS_ITS | Data Portability ---
Author Organization [facility], Main Office Address [address] [facility], [address] [place] [address] Care Team Providers Care Shotgun Shell Loading Machine Operator Name Role Phone [facility] OTHER Assessment Encounter Date [...] today, pt assures me that he has program medical director in his family close by that will [...] Address Organization Details Recorded Time Endocarditi s 70044161 Active 2018 RENATE LORD [address] [facility], [address], [place], [address], [place] [employer] 9 10:40:20 Acute right-sided heart failure 482376532 Active [address], [address], [place], [address], [employer] 9 10:40:35 Atrial flutter 0901028 Active [address], [address], [place], [address], [facility] 9 10:40:43 Acute nontraumati c kidney injury 1594514911005 03 Active [address], [address], [place], [address], [employer] 9 10:40:50 Thrombocyto sis 1361975 Active [address], [address], [place], [address], [facility] 9 10:40:58 Substance abuse 06404671 Active [address], [address], [place], [address], [employer] 9 10:41:08 Disease of liver 840329653 Active [address], [address], [place], [address], [facility] 9 11:22:50 Constipatio n 21882196 Active [address], [address], [place], [address], [employer] 9 11:25:26 Problem Notes None recorded. Medical [...] % 95 % 102 mm[Hg] 56 mm[Hg] [address], [address], [place], [address], [facility] 9 10:39:27 Social History Question Answer Notes LastModified by Organizat ion Details LastModified Time Tobacco Smoking Status Current Every Day Smoker Not Available [employer] 01/22/2020 03:13:21 Do You Have An Advance Directive? Yes Full Code [id number] Information not available 01/22/2020 What Was The Date Of Your Most Recent Tobacco Screening? 07/15/2018 [id number] Information not available 01/22/2020 Sex: Unknown Functional [...] SNOMED-CT Code Diagnosis ICD10 Code Diagnosis Note [id number] R[facility] on [address] [place] [address] 07/15/2018 10:37:22 07/25/2018 09:27:13 Acute right-sided heart failure 373874322 I50.811 See HPIS/P redo sternotomy , MVR, TV repair, PFO closure, LAAA on 07/13tyleno l 650 mg as neededibup rofen 600 mg q 8 PRNmidodri ne 10 mg q 8 hours Endocarditis 73398183 I3 3.0 per ID, MSSAamoxic illin 500 mg BID lifelong Thrombocytosis 4819963 D 47.3 hx ofhad 3 units PRBCs in OR, 3 FFP and 1 pltASA 325 mg dailymonit or CBC weeklymult ivit daily Acute nont raumatic kidney injury 1240075010 59823 N17.8 Creat of 1.5 inpatientb umex 3 mg BIDpot chloride 20 meq BIDmonitor daily weights and edemamonit or labs, renal function, lytes Substance abuse 96184928 F19.10 continue vit C/ thiaminesu boxone 8 mg BID , follow up with clinic outptencou rage abstinence seroquel 25 mg qhs(cocain e, heroin, ETOH, tobacco) Constipation 00343061 K5 9.09 Lactulose 30 ml PRNmiralax 17 gm daily Health Concerns Section Related Observation LastModified by Organization Detai ls LastModified Time None Recorded Concern Status LastModified by Organization Details LastModified Time None Recorded Advance Directives Directive Y: Full code Payers Encounter Date Sequence Insurance Name Policy Number Policy Winkler Covered Member ID Winkler Member ID Guarantor Name 07/15/2018 1 [place] [facility] Portillo Cabral [id number] Portillo Cabral Notes Date Note Type Note Provider Name and Address Organization Details Recorded Time 07/15/2018 text/html This is a 42 yea r old male seen today for initial intake visit. Patient presented to the ED with severe volume overload, at that time he was transferred to [facility]. He has a hx of IVDU and [...] meds were verified yesterday with this provider salesperson art objects, for some reason the meds were never [...] with severe MR/TR, RV dilation. RENATE GOMEZ [address] [place] [address], [address], [place], [address], [facility] 07/15/2018 12:02:51
[2024-07-25 10:16] LABS: MANUAL DIFF FLAG NO
[2024-07-25 10:31] LABS: Basophils Absolute Auto 0.1 X10*3/uL (0.0-0.2); Basophils Percent Auto 1.1 % (0-2); Eosinophils Absolute Auto 0.4 X10*3/uL (0.0-0.4); Eosinophils Percent Auto 5.7 % (0-4); Hematocrit 50.5 % (42.0-52.0); Hemoglobin 16.8 g/dl (14.0-18.0); Imm Gran Abs Auto 0.02 X10*3/uL (0.00-0.03); Imm Gran Pct Auto 0.3 % (0.0-0.4); Lymphocytes Percent Auto 16.9 % (20-40); Mean Corpuscular HGB Conc 33.3 g/dl (31.0-36.0); Mean Corpuscular Volume 93.2 fL (80.0-98.0); Mean Platelet Volume 10.7 fL (9.4-12.4); Monocytes Absolute Auto 0.6 X10*3/uL (0.1-1.2); Monocytes Percent Auto 9.1 % (2-11); Neutrophils Absolute Auto 4.1 x10*3/uL (2.0-8.3); Neutrophils Percent Auto 66.9 % (45-73); Platelet Count 136 X10*3/uL (160-400); Red Blood Count 5.42 X10*6/uL (4.60-5.80); Red Cell Distribution Width 12.1 % (11.0-16.0); White Blood Count 6.1 X10*3/uL (4.8-10.8)
[2024-07-25 11:07] LABS: Alanine Aminotransferase 24 U/L (0-40); Albumin Level 4.7 g/dL (3.5-5.0); Alkaline Phosphatase 54 U/L (39-117); Anion Gap 11 (12-20); Aspartate Amino Transferase 28 U/L (5-37); Bilirubin Total 0.4 mg/dL (0.0-1.0); Blood Urea Nitrogen 30 mg/dL (9-16); Calcium 10.2 mg/dL (8.4-10.2); Carbon Dioxide 29 mmol/L (22-29); Chloride 104 mmol/L (96-108); Cholesterol 180 mg/dL (<200); Estimated Glomerular Filt Rate > 60; Glucose Random 101 mg/dL (60-115); HDL Cholesterol 51 mg/dL (>40); LDL Cholesterol Calculated 111 mg/dL (<100); Sodium 139 mmol/L (135-145); Total Protein 7.7 g/dL (6.5-8.0); Triglycerides 93 mg/dL (<150)
== END 2024-07-25 08:47 | disposition home or self-care (01) ==
LOC: HO.LAB 08:46
PROVIDERS: PCP Internal Medicine; Visit Provider Internal Medicine
DX: Z00.00 Encounter for general adult medical examination without abnormal findings (principal); I42.9 Cardiomyopathy, unspecified; D69.59 Other secondary thrombocytopenia; N18.9 Chronic kidney disease, unspecified; Z95.2 Presence of prosthetic heart valve
CPT/HCPCS: 36415; 80053; 80061; 85025